=== PATIENT | female | born 1975 | race Caucasian/White ===

== ENCOUNTER 2017-01-29 17:05 | Inpatient (IN) | payer OTHER ==
[~2017-01-29] VITALS: Ht 160 cm; Wt 91.3 kg
--- NOTE | 2017-01-29 17:36 | RADRPT ---
PROCEDURE: OB ultrasound CLINICAL INDICATION: Elevated blood pressure with pelvic pain TECHNIQUE: Multiple transverse and longitudinal OB images of the pelvis were obtained. The images were reviewed on a high-resolution PACS workstation. COMPARISON: None FINDINGS: A single live intrauterine is seen. The presentation is vertex. The placenta is grade 2 a nd fundal in location. No evidence of placenta abruption or previa is seen. The heart rate is 142 beats per minute. The amniotic fluid index is 17.4 cm. movement 2 tone 2 breathing 2 Amniotic fluid 2 IMPRESSION: Biophysical profile of 12/26. RPTAT: HPNM Physician Prabha Date Time Electronically viewed and signed by Physician Prabha on 01/29/2017 17:36 /
[2017-01-29 18:04] LABS: BASOPHILS % 0.3 % (0.0-2.0); EOSINOPHILS # 0.2 10^3/ul (0.0-0.5); EOSINOPHILS % 1.9 % (0.0-7.0); HEMATOCRIT 36.4 % (37.0-47.0); HEMOGLOBIN 12.5 g/dl (12.0-16.0); LYMPHOCYTES # 2.3 10^3/ul (0.8-2.9); MEAN CORPUSCULAR HEMOGLOBIN 31.6 pg (29.0-33.0); MEAN CORPUSCULAR HGB CONC 34.3 g/dl (32.0-37.0); MEAN CORPUSCULAR VOLUME 91.9 fl (82.0-101.0); MEAN PLATELET VOLUME 10.6 fl (7.4-10.4); MONOCYTE # 0.7 10^3/ul (0.3-0.9); MONOCYTES % 8.1 % (0.0-11.0); NEUTROPHILS % 64.4 % (39.0-77.0); PLATELET COUNT 207 10^3/UL (140-415); RED BLOOD COUNT 3.96 10^6/ul (4.20-5.40); RED CELL DISTRIBUTION WIDTH 14.1 % (11.5-14.5)
[2017-01-29 18:12] LABS: ADD UMIC NO; UR ASCORBIC ACID NEGATIVE (NEGATIVE); UR BACTERIA FEW /HPF (NONE SEEN); UR BILIRUBIN (Dip) NEGATIVE (NEGATIVE); UR BLOOD (Dip) NEGATIVE (NEGATIVE); UR CLARITY SLIGHTLY CLOUDY (CLEAR); UR COLOR YELLOW (YELLOW); UR GLUCOSE (Dip) NEGATIVE (NEGATIVE); UR KETONES (Dip) NEGATIVE (NEGATIVE); UR LEUKOCYTE ESTERASE (Dip) NEGATIVE Leu/ul (NEGATIVE); UR NITRITE (Dip) NEGATIVE (NEGATIVE); UR RBC 2 /HPF (0-5); UR SPECIFIC GRAVITY (Dip) 1.015 (1.003-1.030); UR SQUAMOUS EPITHELIAL CELL FEW /HPF (FEW); UR TOTAL PROTEIN (Dip) NEGATIVE (NEGATIVE); UR UROBILINOGEN (Dip) NEGATIVE (NEGATIVE)
[2017-01-29 18:17] VITALS: BP 136/84; PULSE 80; RESP 18
[2017-01-29] MEDS ORDERED: PREN1TAB79 PO (18:17)
[2017-01-29] MEDS ORDERED: CALC600T24 PO (18:17)
[2017-01-29 18:18] VITALS: Ht 160 cm; Wt 91.3 kg
[2017-01-29 18:24] LABS: ALBUMIN 3.2 g/dl (3.3-4.9); CALCIUM 9.5 mg/dl (8.4-10.2); CREATININE 0.52 mg/dl (0.44-1.00); POTASSIUM 3.7 mmol/L (3.5-5.1); TOTAL PROTEIN 6.4 g/dl (6.1-8.1); URIC ACID 5.2 mg/dl (3.1-7.9)
--- NOTE | 2017-01-29 18:49 | TRIAGE ---
OB Triage Datetime Report Generated by CPN: 01/29/2017 18:49 Datetime: 01/29/2017 18:14 Assessment Type: Triage Maternal Assessment Level of Consciousness: Fully Conscious DTR's/Clonus: DTRs 2+; No Clonus Headache: Denies Blurred Vision: No Respiratory Effort: Unlabored; Regular Rhythm; Equal Expansion Breath Sounds, Left: Clear and Equal Breath Sounds, Right: Clear and Equal Nausea/Vomiting: Denies RUQ Epigastric Pain: Denies Lower Extremities Edema: Bilateral Lower Extremities Degree: 1+ Upper Extremities Edema: None Degree: None Facial Edema: None Fall Risk Assessment History of Falling: (0) No Secondary Diagnosis: (0) No Ambulatory Aid: (0) Bedrest/Nurse Assist IV Therapy: (0) No Gait: (0) Normal/Bedrest/Immobile Mental Status: (0) Oriented to Own Ability Fall Score: 0 Fall Risk Score Definition: No Risk: No action required Datetime: 01/29/2017 18:11 Time of Arrival: 01/29/2017 16:55 EGA: 34.2 Arrived By: Ambulatory Arrived From: Office Chief Complaint: PT SENT IN TO EVAL. FOR HBP Movement: Present Contractions: Denies/Absent Rupture of Membranes: Denies Vaginal Bleeding: None Vaginal Discharge: Denies Recent Sexual Intercouse: Denies Abdominal Trauma: Not Applicable Patient Complaints: None Time Provider Notified: 01/29/2017 18:30 Provider Notified: DELSHAD Initial Plan: CBC/CMP/URIC ACID/UA/BPP Datetime: 01/29/2017 17:40 Labor Evaluation Monitor Mode: External Heart Rate Monitor Mode: External US
--- NOTE | 2017-01-29 19:00 | HP ---
Date/Time of Note Date/Time of Note DATE: 01/29/17 TIME: 18:57 OB - History Hx of Present Chief Complaint: Elevated BP Estimated Due Date: Mar 10, 2017 : 5 Para: 3 Spontaneous : 1 Therapeutic : 0 Care: Good Care Ultrasounds: Normal mid trimester US Obstetrical Complications: Gestational Diabetes Medical Complications: None Past Family/Social History * Past Medical, Surgical, Family and Obstetric Histories reviewed from chart. GBS Status: Unknown OB Admission Exam Vital Signs Vital Signs Vital Signs Date Time Temp Pulse Resp B/P Pulse Ox O2 Delivery O2 Flow Rate FiO2 01/29/17 18:17 98.1 80 18 136/84 98 Room Air Physical Exam HEENT: WNL Heart: Rhythm Normal Lungs: Clear, Equal Abdomen: WNL Extremities: Normal Reflexes: Normal Heart Rate: 130's Accelerations: Accelerations Present Decelerations: No Decelerations Varibility: Moderate Last 72 hours Lab Results CBC & BMP 01/29/17 17:50 Liver Function Test 01/29/17 17:50 Alanine Aminotransferase (ALT/SGPT) 26 Albumin 3.2 L Alkaline Phosphatase 87 Aspartate Amino Transf (AST/SGOT) 21 Direct Bilirubin 0.00 Total Protein 6.4 OB Assessment/Plan Reason for admission: other (R/O preeclampsia) Plan: Other Other plan: Admit 24 hour urine collection Monitor BP [facility] labs RYAN GIMENEZ MD Jan 29, 2017 19:00
[2017-01-30 18:24] LABS: COLLECTION PERIOD 24 hrs
[2017-01-30 19:18] LABS: COLLECTION PERIOD 24 hrs; SCRET 0.52 mg/dl (0.44-1.00)
--- NOTE | 2017-01-30 20:14 | QN ---
Documentation Comment No complaint Afebrile VSS Strip Category I 24 hour urine total protein > 600 mg Plan: Perinatology consult. RYAN GIMENEZ MD Jan 30, 2017 20:14
[2017-01-31 06:24] LABS: BASOPHILS % 0.5 % (0.0-2.0); EOSINOPHILS # 0.2 10^3/ul (0.0-0.5); EOSINOPHILS % 2.6 % (0.0-7.0); HEMATOCRIT 39.3 % (37.0-47.0); HEMOGLOBIN 13.1 g/dl (12.0-16.0); LYMPHOCYTES # 2.2 10^3/ul (0.8-2.9); LYMPHOCYTES % 25.3 % (15.0-51.0); MEAN CORPUSCULAR HEMOGLOBIN 30.8 pg (29.0-33.0); MEAN CORPUSCULAR HGB CONC 33.3 g/dl (32.0-37.0); MEAN CORPUSCULAR VOLUME 92.3 fl (82.0-101.0); MEAN PLATELET VOLUME 10.8 fl (7.4-10.4); MONOCYTE # 0.6 10^3/ul (0.3-0.9); MONOCYTES % 6.8 % (0.0-11.0); NEUTROPHILS % 64.3 % (39.0-77.0); PLATELET COUNT 220 10^3/UL (140-415); RED BLOOD COUNT 4.26 10^6/ul (4.20-5.40); RED CELL DISTRIBUTION WIDTH 14.6 % (11.5-14.5); WHITE BLOOD COUNT 8.6 10^3/ul (4.8-10.8)
[2017-01-31 06:58] LABS: ALBUMIN 3.2 g/dl (3.3-4.9); ALBUMIN/GLOBULIN RATIO 0.96; BILIRUBIN,INDIRECT 0.2 mg/dl (0-1.1); BILIRUBIN,TOTAL 0.2 mg/dl (0.2-1.3); CALCIUM 9.4 mg/dl (8.4-10.2); CREATININE 0.54 mg/dl (0.44-1.00); TOTAL PROTEIN 6.5 g/dl (6.1-8.1); URIC ACID 5.6 mg/dl (3.1-7.9)
[2017-01-31] MEDS: BETAMET NA PHOS/AC(6 MG/ML) 5ML INJ IM SCH (10:28)
--- NOTE | 2017-01-31 13:27 | QN ---
Documentation Comment No complaint Afebrile VSS Strip Reactive Will give IM betamethasone per recommendation of Perinatology. RYAN GIMENEZ MD Jan 31, 2017 13:27
[2017-01-31] MEDS: ACCU-CHEK XX SCH ×2 (15:10→20:05)
[2017-01-31] MEDS: INSULIN ASPART [NOVOLOG] 3 ML PEN SC SCH ×2 (15:15→20:05)
[2017-01-31] MEDS: ACETAMINOPHEN 325 MG TAB PO PRN (18:35)
--- NOTE | 2017-02-01 05:11 | CONS ---
DATE OF ADMISSION: 01/29/2017 DATE OF CONSULTATION: 01/31/2017 HISTORY OF PRESENT ILLNESS: The patient is a multigravida at 34 weeks and 4 days with history of gestational diabetes, on no medication. She had elevated blood pressure yesterday, which was sent from clinic to evaluate for preeclampsia. A 24-hour urine for protein is 600 g. She is experiencing mild elevation in blood pressure and no severe range. She has no headache, chest pain, shortness of breath, or right upper quadrant pain. PAST MEDICAL HISTORY: Negative. REVIEW OF SYSTEMS: Negative. PHYSICAL EXAMINATION: VITAL SIGNS: Blood pressure 139/92. Physical exam deferred. heart tones reassuring for gestational age. No contractions. LABORATORY: Her preeclampsia labs, except for the 24-hour urine for protein, are normal. IMPRESSION: 1. Intrauterine at 34 weeks and 4 days with mild preeclampsia, currently stable. 2. Gestational diabetes. RECOMMENDATIONS: In-house management at least for 3 or 4 more days to establish baseline blood pressures. Betamethasone. Insulin sliding scale as her blood glucose will be elevated because of the betamethasone. If the patient continues to be mildly preeclamptic, delivery at 37 weeks is recommended. Otherwise, if for any reason the patient becomes severely preeclamptic, delivery instant is recommended at that time. Dictated By: Yeimy Cavazos MD /jer/melissa /Document#: [id number]
[2017-02-01] MEDS: ACCU-CHEK XX SCH ×4 (09:00→20:06)
[2017-02-01] MEDS: BETAMET NA PHOS/AC(6 MG/ML) 5ML INJ IM SCH (10:24)
[2017-02-01] MEDS: INSULIN ASPART [NOVOLOG] 3 ML PEN SC SCH ×3 (11:42→20:11)
--- NOTE | 2017-02-01 20:10 | QN ---
Documentation Comment No complaint Afebrile VSS Strip Category I Continue care per Perinatology. RYAN GIMENEZ MD Feb 01, 2017 20:10
[2017-02-02 06:58] LABS: BASOPHILS % 0.1 % (0.0-2.0); HEMATOCRIT 37.9 % (37.0-47.0); HEMOGLOBIN 12.7 g/dl (12.0-16.0); LYMPHOCYTES # 1.7 10^3/ul (0.8-2.9); LYMPHOCYTES % 13.9 % (15.0-51.0); MEAN CORPUSCULAR HEMOGLOBIN 31.1 pg (29.0-33.0); MEAN CORPUSCULAR HGB CONC 33.5 g/dl (32.0-37.0); MEAN CORPUSCULAR VOLUME 92.9 fl (82.0-101.0); MEAN PLATELET VOLUME 11.3 fl (7.4-10.4); MONOCYTE # 0.7 10^3/ul (0.3-0.9); MONOCYTES % 5.4 % (0.0-11.0); NEUTROPHIL # 9.9 10^3/ul (1.6-7.5); NEUTROPHILS % 79.4 % (39.0-77.0); PLATELET COUNT 218 10^3/UL (140-415); RED BLOOD COUNT 4.08 10^6/ul (4.20-5.40); RED CELL DISTRIBUTION WIDTH 14.4 % (11.5-14.5); WHITE BLOOD COUNT 12.4 10^3/ul (4.8-10.8)
[2017-02-02 07:24] LABS: ALBUMIN 3.2 g/dl (3.3-4.9); ALBUMIN/GLOBULIN RATIO 1.03; BILIRUBIN,INDIRECT 0.1 mg/dl (0-1.1); BILIRUBIN,TOTAL 0.1 mg/dl (0.2-1.3); CREATININE 0.57 mg/dl (0.44-1.00); POTASSIUM 4.1 mmol/L (3.5-5.1); TOTAL PROTEIN 6.3 g/dl (6.1-8.1); URIC ACID 6.9 mg/dl (3.1-7.9)
[2017-02-02] MEDS: ACCU-CHEK XX SCH ×4 (07:52→20:18)
[2017-02-02] MEDS: INSULIN ASPART [NOVOLOG] 3 ML PEN SC SCH ×3 (11:46→20:17)
[2017-02-02] MEDS ORDERED: AL HYDROX/MG HYDROX/SIMETH 30 ML CUP ONE (18:57)
[2017-02-02] MEDS: AL HYDROX/MG HYDROX/SIMETH 30 ML CUP PO PRN (19:00)
--- NOTE | 2017-02-02 19:29 | QN ---
Documentation Comment No complaint Afebrile VSS Strip Reactive PLt, ALT, AST normal Continue care per Perinatology. RYAN GIMENEZ MD Feb 02, 2017 19:29
[2017-02-03] MEDS: ACCU-CHEK XX SCH ×4 (09:15→20:22)
[2017-02-03] MEDS: INSULIN ASPART [NOVOLOG] 3 ML PEN SC SCH ×3 (11:23→20:05)
--- NOTE | 2017-02-03 17:27 | QN ---
Documentation Comment No complaint Afebrile VSS Strip Reactive Continue per Perinatology. RYAN GIMENEZ MD Feb 03, 2017 17:26
--- NOTE | 2017-02-03 18:05 | RADRPT ---
PROCEDURE: US OB biophysical profile. CLINICAL INDICATION: decreased movements, GDM TECHNIQUE: Multiple sonographic images of the pelvis were obtained. The images were reviewed on a PACS workstation. COMPARISON: 01/29/2017 FINDINGS: There is a single viable intrauterine gestation. Cardiac activity is present with 132 beats per min [place]. There is a vertex presentation. The placenta is maternal right. There is no evidence of placental abruption. There is a normal amount of amniotic fluid with an LIZBETH = 15.5 cm. Biophysical profile: movement 2/2 tone 2/2. breathing 2/2 LIZBETH 2/2 Total 12/26 RPTAT: AA . IMPRESSION: Normal biophysical profile. . .Kavin Yousesf MD, MD Date Time Electronically viewed and signed by .Kavin Youssef MD, MD on 02/03/2017 18:05 .S/
[2017-02-04] MEDS: ACCU-CHEK XX SCH ×4 (08:00→20:41)
[2017-02-04] MEDS: INSULIN ASPART [NOVOLOG] 3 ML PEN SC SCH ×3 (11:00→20:05)
[2017-02-04] MEDS: PRENATAL VITAMIN PO SCH (11:02)
[2017-02-04] MEDS: FERROUS SULFATE (EC) 325 MG TAB PO SCH (11:02)
--- NOTE | 2017-02-04 17:49 | QN ---
Documentation Comment No complaint Afebrile VSS Strip Reactive Repeat PIH labs in AM. RYAN GIMENEZ MD Feb 04, 2017 17:49
[2017-02-05 06:01] LABS: BASOPHILS % 0.4 % (0.0-2.0); EOSINOPHILS # 0.2 10^3/ul (0.0-0.5); HEMATOCRIT 39.7 % (37.0-47.0); HEMOGLOBIN 13.3 g/dl (12.0-16.0); LYMPHOCYTES # 2.2 10^3/ul (0.8-2.9); LYMPHOCYTES % 22.7 % (15.0-51.0); MEAN CORPUSCULAR HEMOGLOBIN 30.9 pg (29.0-33.0); MEAN CORPUSCULAR HGB CONC 33.5 g/dl (32.0-37.0); MEAN CORPUSCULAR VOLUME 92.1 fl (82.0-101.0); MEAN PLATELET VOLUME 11.1 fl (7.4-10.4); MONOCYTE # 0.7 10^3/ul (0.3-0.9); MONOCYTES % 7.1 % (0.0-11.0); NEUTROPHIL # 6.5 10^3/ul (1.6-7.5); NEUTROPHILS % 66.9 % (39.0-77.0); PLATELET COUNT 201 10^3/UL (140-415); RED BLOOD COUNT 4.31 10^6/ul (4.20-5.40); RED CELL DISTRIBUTION WIDTH 14.2 % (11.5-14.5); WHITE BLOOD COUNT 9.8 10^3/ul (4.8-10.8)
[2017-02-05 06:47] LABS: ALBUMIN 3.2 g/dl (3.3-4.9); BILIRUBIN,INDIRECT 0.2 mg/dl (0-1.1); BILIRUBIN,TOTAL 0.2 mg/dl (0.2-1.3); CALCIUM 10.2 mg/dl (8.4-10.2); CREATININE 0.55 mg/dl (0.44-1.00); POTASSIUM 4.1 mmol/L (3.5-5.1); TOTAL PROTEIN 6.4 g/dl (6.1-8.1); URIC ACID 6.1 mg/dl (3.1-7.9)
[2017-02-05] MEDS: ACCU-CHEK XX SCH ×4 (08:06→20:18)
[2017-02-05] MEDS: FERROUS SULFATE (EC) 325 MG TAB PO SCH (09:18)
[2017-02-05] MEDS: PRENATAL VITAMIN PO SCH (09:18)
[2017-02-05] MEDS: ACETAMINOPHEN 325 MG TAB PO PRN (11:08)
[2017-02-05] MEDS: INSULIN ASPART [NOVOLOG] 3 ML PEN SC SCH ×3 (11:30→20:05)
[2017-02-05] MEDS: AL HYDROX/MG HYDROX/SIMETH 30 ML CUP PO PRN (20:18)
--- NOTE | 2017-02-05 20:50 | QN ---
Documentation Comment No complaint Afebrile VSS Strip Reactive Patient will be discharged per recommendation of Perinatology Follow up on 02/07/2017. RYAN GIMENEZ MD Feb 05, 2017 20:50
--- NOTE | 2017-02-05 20:51 | DS ---
Date/Time of Note Date/Time of Note DATE: 02/05/17 TIME: 20:50 Obstetrical Discharge Record Final Diagnosis Final Diagnosis: not delivered Complications Gestational Diabetes, Preg induced Hypertension Condition on Discharge Physical Assessment Voiding: Yes Bowel Movement: Yes Breast: Soft, non-tender, Filling Fundus: Firm Calf Tenderness: No Patient Condition: Stable RYAN GIMENEZ MD Feb 05, 2017 20:51
== END 2017-02-05 21:12 | disposition home or self-care (01) | DRG 781 ==
LOC: L-D 17:05 → OBT 17:05 → OBG 18:45 → L-D 18:45 → OBT 18:45
PROVIDERS: ADMIT Obstetrics & Gynecology; ATTEND Obstetrics & Gynecology
DX: O14.03 Mild to moderate pre-eclampsia, third trimester (principal); O24.419 Gestational diabetes mellitus in pregnancy, unspecified control; Z3A.34 34 weeks gestation of pregnancy
CPT/HCPCS: 36415; 76818; 80053; 81001; 81003; 82575; 82962; 84156; 84560; 85025; G0463; J0702; J1815

== ENCOUNTER 2017-02-08 14:42 | Outpatient (CLI) | payer OTHER ==
[~2017-02-08] VITALS: Ht 162.6 cm; Wt 88.7 kg
[~2017-02-08 14:42] MED LIST: CALC600T24 PO; PREN1TAB79 PO
[2017-02-08 15:06] VITALS: Ht 162.6 cm; Wt 88.7 kg
[2017-02-08 15:07] VITALS: BP 147/88; PULSE 86; RESP 18
--- NOTE | 2017-02-08 15:22 | RADRPT ---
PROCEDURE: OB ultrasound for biophysical profile CLINICAL INDICATION: Patency induced hypertension. TECHNIQUE: Multiple sonographic images of the pelvis were obtained. Transabdominal view of the gr avid uterus are available for review. The images were reviewed on a PACS workstation. COMPARISON: Pelvic ultrasound 02/03/2017 FINDINGS: breathing movement = 2/2 tone = 2/2 motion = 2/2 LIZBETH = 2/2 LIZBETH = 13.6 cm Single live intrauterine with cardiac activity. heart rate equals 131 beats p er minute. Presentation is cephalic. The placenta is fundal. IMPRESSION: 1. Single viable intrauterine gestation. 2. Biophysical profile = 8/8. 3. LIZBETH = 13.6 cm. RPTAT: KK .Oscar Simon MD, MD Date Time Electronically viewed and signed by .Oscar Simon MD, MD on 02/08/2017 15:22 .B/
--- NOTE | 2017-02-08 16:54 | QN ---
Documentation Comment iup 35 weeks gdm vss exam wnl labs wnl a/p iup 35 weeks gdm stable dc [place] MANJU FLOOD MD Feb 08, 2017 16:54
== END 2017-02-08 17:00 | disposition home or self-care (01) ==
LOC: L-D 14:42 → OBT 14:42
PROVIDERS: ATTEND Obstetrics & Gynecology
DX: O24.419 Gestational diabetes mellitus in pregnancy, unspecified control (principal); Z3A.35 35 weeks gestation of pregnancy
CPT/HCPCS: 76818; G0463

== ENCOUNTER 2017-02-12 09:12 | Outpatient (CLI) | payer OTHER ==
[~2017-02-12] VITALS: Ht 162.6 cm; Wt 89.0 kg
[2017-02-12 10:04] LABS: BASOPHILS % 0.3 % (0.0-2.0); EOSINOPHILS # 0.1 10^3/ul (0.0-0.5); EOSINOPHILS % 1.4 % (0.0-7.0); HEMATOCRIT 37.2 % (37.0-47.0); LYMPHOCYTES # 1.8 10^3/ul (0.8-2.9); LYMPHOCYTES % 23.7 % (15.0-51.0); MEAN CORPUSCULAR HGB CONC 34.9 g/dl (32.0-37.0); MEAN CORPUSCULAR VOLUME 91.6 fl (82.0-101.0); MEAN PLATELET VOLUME 10.6 fl (7.4-10.4); MONOCYTE # 0.5 10^3/ul (0.3-0.9); MONOCYTES % 6.6 % (0.0-11.0); NEUTROPHIL # 5.2 10^3/ul (1.6-7.5); NEUTROPHILS % 67.6 % (39.0-77.0); PLATELET COUNT 189 10^3/UL (140-415); RED BLOOD COUNT 4.06 10^6/ul (4.20-5.40); RED CELL DISTRIBUTION WIDTH 13.9 % (11.5-14.5); WHITE BLOOD COUNT 7.8 10^3/ul (4.8-10.8)
[2017-02-12 10:21] VITALS: Ht 162.6 cm; Wt 89.0 kg
[2017-02-12 10:22] VITALS: BP 120/98; PULSE 98; RESP 20
--- NOTE | 2017-02-12 10:22 | RADRPT ---
PROCEDURE: US OB biophysical profile. CLINICAL INDICATION: decreased movements, contractions TECHNIQUE: Multiple sonographic images of the pelvis were obtained. The images were reviewed on a PACS workstation. COMPARISON: 02/08/2017 FINDINGS: There is a single viable intrauterine gestation. Cardiac activity is present with 146 beats per min [place]. There is a vertex presentation. The placenta is anterior. There is no evidence of placental abruption. There is a normal amount of amniotic fluid with an LIZBETH = 12.0 cm. Biophysical profile: movement 2/2 tone 2/2. breathing 2/2 LIZBETH 2/2 Total 12/26 RPTAT: AA . IMPRESSION: Normal biophysical profile. . .Kavin Youssef MD, MD Date Time Electronically viewed and signed by .Kavin Youssef MD, MD on 02/12/2017 10:22 .S/
[2017-02-12 10:26] LABS: INR 0.91; PARTIAL THROMBOPLASTIN TIME 23.8 Sec (25.0-35.0); PROTIME 12.2 Sec (12.2-14.2)
[2017-02-12 10:32] LABS: ADD UMIC YES; UR ASCORBIC ACID 40 mg/dL (NEGATIVE); UR BACTERIA MANY /HPF (NONE SEEN); UR BILIRUBIN (Dip) NEGATIVE (NEGATIVE); UR BLOOD (Dip) NEGATIVE (NEGATIVE); UR CLARITY CLOUDY (CLEAR); UR COLOR YELLOW (YELLOW); UR GLUCOSE (Dip) NEGATIVE (NEGATIVE); UR KETONES (Dip) NEGATIVE (NEGATIVE); UR LEUKOCYTE ESTERASE (Dip) 2+ Leu/ul (NEGATIVE); UR MUCUS FEW /HPF (NONE SEEN); UR NITRITE (Dip) NEGATIVE (NEGATIVE); UR RBC 2 /HPF (0-5); UR SPECIFIC GRAVITY (Dip) 1.017 (1.003-1.030); UR SQUAMOUS EPITHELIAL CELL MANY /HPF (FEW); UR TOTAL PROTEIN (Dip) 1+ mg/dl (NEGATIVE); UR UROBILINOGEN (Dip) NEGATIVE (NEGATIVE)
[2017-02-12 10:37] LABS: ALBUMIN 3.1 g/dl (3.3-4.9); ALBUMIN/GLOBULIN RATIO 0.88; BILIRUBIN,INDIRECT 0.1 mg/dl (0-1.1); BILIRUBIN,TOTAL 0.1 mg/dl (0.2-1.3); CALCIUM 10.4 mg/dl (8.4-10.2); CREATININE 0.57 mg/dl (0.44-1.00); POTASSIUM 4.2 mmol/L (3.5-5.1); TOTAL PROTEIN 6.6 g/dl (6.1-8.1)
--- NOTE | 2017-02-12 12:00 | TRIAGE ---
OB Triage Datetime Report Generated by CPN: 02/12/2017 12:00 Datetime: 02/12/2017 11:38 Labor Evaluation Frequency: IRREG Monitor Mode: External Duration (sec)2399: 50-90 Quality: Mild Pattern: Normal: <= 5 Contractions in 10 Minutes Resting Tone [place]: Relaxed Contraction Comments: PT DENIES UC'S Heart Rate FHR Baseline Rate: 135 Monitor Mode: External US Variability: Moderate 6-25 bpm Accelerations: 15X15 Decelerations: None Category: Category I Pain Assessment Pain Scale: 1 Pain Presence: Intermittent Pain Type: Contraction Pain Location: Abdomen; Back Pain Goal: 10 Datetime: 02/12/2017 09:46 Assessment Type: Ongoing Assessment Maternal Assessment Level of Consciousness: Fully Conscious DTR's/Clonus: DTRs 2+; No Clonus Headache: Denies Blurred Vision: No Respiratory Effort: Unlabored; Regular Rhythm; Equal Expansion Breath Sounds, Left: Clear and Equal Breath Sounds, Right: Clear and Equal Nausea/Vomiting: Denies RUQ Epigastric Pain: Denies Facial Edema: None Fall Risk Assessment History of Falling: (0) No Secondary Diagnosis: (0) No Ambulatory Aid: (0) Bedrest/Nurse Assist IV Therapy: (0) No Gait: (0) Normal/Bedrest/Immobile Mental Status: (0) Oriented to Own Ability Fall Score: 0 Fall Risk Score Definition: No Risk: No action required Datetime: 02/12/2017 09:45 Stage of : OB Triage Assessment Type: Triage Maternal Assessment Level of Consciousness: Fully Conscious DTR's/Clonus: DTRs 2+; No Clonus Headache: Denies Blurred Vision: No Respiratory Effort: Unlabored; Regular Rhythm; Equal Expansion Breath Sounds, Left: Clear and Equal Breath Sounds, Right: Clear and Equal Nausea/Vomiting: Denies RUQ Epigastric Pain: Denies Lower Extremities Edema: None Degree: None Upper Extremities Edema: None Degree: None Facial Edema: None Temperature Route: Axillary Fall Risk Assessment History of Falling: (0) No Secondary Diagnosis: (0) No Ambulatory Aid: (0) Bedrest/Nurse Assist IV Therapy: (0) No Gait: (0) Normal/Bedrest/Immobile Mental Status: (0) Oriented to Own Ability Fall Score: 0 Fall Risk Score Definition: No Risk: No action required Pain Assessment Pain Scale: 0 Pain Presence: None/Denies Pain Type: N/A Datetime: 02/12/2017 09:14 Time of Arrival: 02/12/2017 09:07 EGA: 36.2 Arrived By: Ambulatory Arrived From: Home Chief Complaint: NST/ BPP FOR HIGH BP AND A1DM Movement: Present Contractions: Denies/Absent Contractions: IRREG Rupture of Membranes: Denies Vaginal Bleeding: None Vaginal Discharge: Denies Recent Sexual Intercouse: Denies Abdominal Trauma: Not Applicable Patient Complaints: Contractions Time Provider Notified: 02/12/2017 09:30 Provider Notified: PERNELL Initial Plan: BPP, NST (Annotations: Data stored by CPN on behalf of user) Datetime: 02/08/2017 15:01 Fall Score: 0 Fall Risk Score Definition: No Risk: No action required Datetime: 02/08/2017 15:00 EGA: 35.5 Datetime: 02/05/2017 19:20 Fall Score: 0 Fall Risk Score Definition: No Risk: No action required Datetime: 02/05/2017 08:08 Fall Score: 0 Fall Risk Score Definition: No Risk: No action required Datetime: 02/04/2017 07:42 Fall Score: 0 Fall Risk Score Definition: No Risk: No action required Datetime: 02/03/2017 19:41 Fall Score: 0 Fall Risk Score Definition: No Risk: No action required Datetime: 02/03/2017 08:50 Fall Score: 0 Fall Risk Score Definition: No Risk: No action required Datetime: 02/02/2017 19:25 Fall Score: 0 Fall Risk Score Definition: No Risk: No action required Datetime: 02/02/2017 07:47 Fall Score: 0 Fall Risk Score Definition: No Risk: No action required Datetime: 02/01/2017 07:46 Fall Score: 0 Fall Risk Score Definition: No Risk: No action required Datetime: 01/31/2017 20:25 Fall Score: 0 Fall Risk Score Definition: No Risk: No action required Datetime: 01/31/2017 19:15 Fall Score: 0 Fall Risk Score Definition: No Risk: No action required Datetime: 01/31/2017 07:58 Fall Score: 0 Fall Risk Score Definition: No Risk: No action required Datetime: 01/30/2017 19:40 Fall Score: 0 Fall Risk Score Definition: No Risk: No action required Datetime: 01/30/2017 07:59 Fall Score: 0 Fall Risk Score Definition: No Risk: No action required Datetime: 01/29/2017 22:53 Fall Score: 0 Fall Risk Score Definition: No Risk: No action required Datetime: 01/29/2017 18:14 Fall Score: 0 Fall Risk Score Definition: No Risk: No action required Datetime: 01/29/2017 18:11 EGA: 34.2
--- NOTE | 2017-02-12 18:09 | QN ---
Documentation Comment iup 36 weeks GDM vss exan wnl a/p iup 36 weeks GDM stable HTN stable dc home MANJU FLOOD MD Feb 12, 2017 18:09
== END 2017-02-12 11:55 | disposition home or self-care (01) ==
LOC: OBT 09:12 → L-D 09:12 → OBT 11:55
PROVIDERS: ATTEND Obstetrics & Gynecology
DX: O24.419 Gestational diabetes mellitus in pregnancy, unspecified control (principal); Z3A.36 36 weeks gestation of pregnancy
CPT/HCPCS: 36415; 76818; 80053; 81001; 84560; 85025; 85384; 85610; 85730; Z7500; G0463

== ENCOUNTER 2017-02-15 07:46 | Outpatient (CLI) | payer OTHER ==
[~2017-02-15] VITALS: Ht 162.6 cm; Wt 90.0 kg
[2017-02-15 08:06] VITALS: BP 144/83; PULSE 93; Ht 162.6 cm; Wt 90.0 kg
--- NOTE | 2017-02-15 08:50 | RADRPT ---
PROCEDURE: US OB biophysical profile. CLINICAL INDICATION: evaluation TECHNIQUE: Multiple sonographic images of the pelvis were obtained. The images were reviewed on a PACS workstation. COMPARISON: Obstetrical ultrasound from 02/12/2017 FINDINGS: There is a single viable intrauterine gestation. Cardiac activity is present with 159 beats per min [place]. There is a vertex presentation. The placenta is anterior. There is no evidence of placental abruption. There is a normal amount of amniotic fluid with an LIZBETH = 12.5 cm. Biophysical profile: movement 2/2 tone 2/2. breathing 2/2 LIZBETH 2/2 Total 12/26 RPTAT: AA . IMPRESSION: Normal biophysical profile. Physician Raphael Date Time Electronically viewed and signed by Physician Raphael on 02/15/2017 08:50 /
[2017-02-15 10:22] LABS: BASOPHILS % 0.4 % (0.0-2.0); EOSINOPHILS # 0.2 10^3/ul (0.0-0.5); HEMATOCRIT 37.2 % (37.0-47.0); HEMOGLOBIN 12.6 g/dl (12.0-16.0); LYMPHOCYTES # 1.8 10^3/ul (0.8-2.9); LYMPHOCYTES % 24.5 % (15.0-51.0); MEAN CORPUSCULAR HEMOGLOBIN 31.1 pg (29.0-33.0); MEAN CORPUSCULAR HGB CONC 33.9 g/dl (32.0-37.0); MEAN CORPUSCULAR VOLUME 91.9 fl (82.0-101.0); MEAN PLATELET VOLUME 11.1 fl (7.4-10.4); MONOCYTE # 0.6 10^3/ul (0.3-0.9); MONOCYTES % 7.4 % (0.0-11.0); NEUTROPHIL # 4.9 10^3/ul (1.6-7.5); NEUTROPHILS % 65.3 % (39.0-77.0); PLATELET COUNT 178 10^3/UL (140-415); RED BLOOD COUNT 4.05 10^6/ul (4.20-5.40); RED CELL DISTRIBUTION WIDTH 14.4 % (11.5-14.5); WHITE BLOOD COUNT 7.5 10^3/ul (4.8-10.8)
[2017-02-15 10:36] LABS: ALBUMIN 3.2 g/dl (3.3-4.9); ALBUMIN/GLOBULIN RATIO 1.03; BILIRUBIN,INDIRECT 0.1 mg/dl (0-1.1); BILIRUBIN,TOTAL 0.1 mg/dl (0.2-1.3); CALCIUM 9.3 mg/dl (8.4-10.2); CREATININE 0.56 mg/dl (0.44-1.00); TOTAL PROTEIN 6.3 g/dl (6.1-8.1); URIC ACID 6.8 mg/dl (3.1-7.9)
--- NOTE | 2017-02-15 12:08 | CONS ---
Date/Time of Note Date/Time of Note DATE: 02/15/17 TIME: 12:02 Consultation Date/Type/Reason Admit Date/Time February 15, 2017 OB triage consult This patient is a 41 years old 5 para 3 1 with estimated date of confinement of March 10, 2017 which make her 36 weeks and 5 days. She came to OB triage due to elevated blood pressure and gestational diabetes mellitus to be evaluated and monitored. She is on a scheduled for section on Sunday 4 days later On examination she is somewhat overweight lady near-term. Her vital signs shows the blood pressure of 144/83 pulse rate 93 respiration 18 and temperature 97.9. heart tones are normal with good variability and accelerations no decelerations. No contractions abdomen is soft. No CVA tenderness. Laboratory Tests Test 02/15/17 07:52 02/15/17 09:20 Bedside Glucose 160mg/dL White Blood Count 7.510^3/ul Red Blood Count 4.0510^6/ul Hemoglobin 12.6g/dl Hematocrit 37.2% Mean Corpuscular Volume 91.9fl Mean Corpuscular Hemoglobin 31.1pg Mean Corpuscular Hemoglobin Concent 33.9g/dl Red Cell Distribution Width 14.4% Platelet Count 23723^3/UL Mean Platelet Volume 11.1fl Neutrophils % 65.3% Lymphocytes % 24.5% Monocytes % 7.4% Eosinophils % 2.0% Basophils % 0.4% Nucleated Red Blood Cells % 0.0/100WBC Neutrophils # 4.910^3/ul Lymphocytes # 1.810^3/ul Monocytes # 0.610^3/ul Eosinophils # 0.210^3/ul Basophils # 0.010^3/ul Nucleated Red Blood Cells # 0.010^3/ul Sodium Level 134mmol/L Potassium Level 4.0mmol/L Chloride Level 106mmol/L Carbon Dioxide Level 21mmol/L Anion Gap 11 Blood Urea Nitrogen 9mg/dl Creatinine 0.56mg/dl Glucose Level 132mg/dl Uric Acid 6.8mg/dl Calcium Level 9.3mg/dl Total Bilirubin 0.1mg/dl Direct Bilirubin 0.00mg/dl Indirect Bilirubin 0.1mg/dl Aspartate Amino Transf (AST/SGOT) 20IU/L Alanine Aminotransferase (ALT/SGPT) 29IU/L Alkaline Phosphatase 102IU/L Total Protein 6.3g/dl Albumin 3.2g/dl Globulin 3.10g/dl Albumin/Globulin Ratio 1.03 Constitutional: No chills, No diaphoresis, No disoriented, No febrile, No improved, No no complaints, No other, No poor po, No requiring IVF, No requiring O2 Eyes: No discharge, No no complaints, No other, No pain, No redness, No visual change ENT: No bleeding, No congestion, No discharge, No dysphagia, No no complaints, No other, No pain, No sore throat Respiratory: No cough, No no complaints, No other, No pain, No pleuritic pain, No shortness of breath, No sputum, No wheezing Cardiovascular: No chest pain, No edema, No lightheadedness, No no complaints, No orthopenea, No other, No palpitations, No paroxysmal nocturnal dyspnea Gastrointestinal: No blood, No constipation, No decreased appetite, No diarrhea , No flatus, No nausea, No no complaints, No other, No pain, No passing stool, No vomiting Genitourinary: other (Pelvic examination was not performed due to the fact that she did not have any contractions), No bleeding, No discharge, No dysuria, No flank pain, No hematuria, No no complaints Musculoskeletal: No back pain, No bone/joint pain, No neck pain, No no complaints, No other, No restricted range of motion, No swelling Skin: No bruising, No erythema, No laceration, No no complaints, No other, No pruritis, No rash, No skin lesions Neurologic: No confusion, No dizziness, No focal-weakness, No headache, No no complaints, No other, No seizure, No syncope Endocrine: other (Knee jerk reflexes are normal) Lymphatic: No adenopathy, No lymphadema, No no complaints, No other, No tender nodes Psychological: No anxiety, No confusion, No depression, No nl mood/affect, No no complaints, No other, No suicidal Additional Comments .On ultrasound study report was a single viable intrauterine gestation with cardiac activity of 159 bpm in vertex presentation placenta was anterior there was no evidence of a placenta abruption her biophysical profile was reported 12/26 LIZBETH was 12.5 cm Disposition; with the favorable abnormal finding patient was discharged home and she will undergo a section in 4 days. End of dictation . . Social History Smoking Status: Never smoker Exam/Review of Systems Vital Signs Vitals Vital Signs Date Time Temp Pulse Resp B/P Pulse Ox O2 Delivery O2 Flow Rate FiO2 02/15/17 08:06 97.9 93 144/83 Results Result Diagram: 02/15/17 0920 02/15/17 0920 Results 24 hrs Laboratory Tests Test 02/15/17 07:52 02/15/17 09:20 Bedside Glucose 160 White Blood Count 7.5 Red Blood Count 4.05 L Hemoglobin 12.6 Hematocrit 37.2 Mean Corpuscular Volume 91.9 Mean Corpuscular Hemoglobin 31.1 Mean Corpuscular Hemoglobin Concent 33.9 Red Cell Distribution Width 14.4 Platelet Count 178 Mean Platelet Volume 11.1 H Neutrophils % 65.3 Lymphocytes % 24.5 Monocytes % 7.4 Eosinophils % 2.0 Basophils % 0.4 Nucleated Red Blood Cells % 0.0 Neutrophils # 4.9 Lymphocytes # 1.8 Monocytes # 0.6 Eosinophils # 0.2 Basophils # 0.0 Nucleated Red Blood Cells # 0.0 Sodium Level 134 L Potassium Level 4.0 Chloride Level 106 Carbon Dioxide Level 21 Anion Gap 11 Blood Urea Nitrogen 9 Creatinine 0.56 Glucose Level 132 Uric Acid 6.8 Calcium Level 9.3 Total Bilirubin 0.1 L Direct Bilirubin 0.00 Indirect Bilirubin 0.1 Aspartate Amino Transf (AST/SGOT) 20 Alanine Aminotransferase (ALT/SGPT) 29 Alkaline Phosphatase 102 Total Protein 6.3 Albumin 3.2 L Globulin 3.10 Albumin/Globulin Ratio 1.03 DEVYN HOFFMANN MD Feb 15, 2017 12:08
--- NOTE | 2017-02-15 12:17 | TRIAGE ---
OB Triage Datetime Report Generated by CPN: 02/15/2017 12:16 Datetime: 02/15/2017 11:55 Stage of : OB Triage Datetime: 02/15/2017 11:20 Stage of : OB Triage Datetime: 02/15/2017 10:54 Labor Evaluation Frequency: 0 Monitor Mode: External Resting Tone Osborn: Relaxed Heart Rate FHR Baseline Rate: 135 Monitor Mode: External US Variability: Moderate 6-25 bpm Decelerations: None Category: Category I Pain Assessment Pain Scale: 0 Pain Presence: None/Denies Pain Type: N/A Pain Goal: 3 Pain Relief Measures: Comfort Measures Datetime: 02/15/2017 10:00 Labor Evaluation Frequency: 0 Monitor Mode: External Pattern: Normal: <= 5 Contractions in 10 Minutes Resting Tone Osborn: Relaxed Heart Rate FHR Baseline Rate: 135 Monitor Mode: External US Variability: Moderate 6-25 bpm Accelerations: 10X10 Decelerations: None Category: Category I Pain Assessment Pain Scale: 0 Pain Presence: None/Denies Pain Type: N/A Pain Goal: 3 Pain Relief Measures: Comfort Measures Datetime: 02/15/2017 09:15 Stage of : OB Triage Datetime: 02/15/2017 08:56 Labor Evaluation Frequency: 0 Monitor Mode: External Pattern: Normal: <= 5 Contractions in 10 Minutes Resting Tone Osborn: Relaxed Heart Rate FHR Baseline Rate: 145 Monitor Mode: External US Variability: Moderate 6-25 bpm Accelerations: 10X10 Decelerations: None Category: Category I Pain Assessment Pain Scale: 0 Pain Presence: None/Denies Pain Type: N/A Pain Goal: 3 Pain Relief Measures: Comfort Measures Datetime: 02/15/2017 07:54 Stage of : OB Triage Assessment Type: Triage Maternal Assessment Level of Consciousness: Fully Conscious DTR's/Clonus: DTRs 2+; No Clonus Headache: Denies Blurred Vision: No Respiratory Effort: Unlabored; Regular Rhythm; Equal Expansion Breath Sounds, Left: Clear and Equal Breath Sounds, Right: Clear and Equal Nausea/Vomiting: Denies RUQ Epigastric Pain: Denies Facial Edema: None Temperature Route: Axillary Fall Risk Assessment History of Falling: (0) No Secondary Diagnosis: (0) No Ambulatory Aid: (0) Bedrest/Nurse Assist IV Therapy: (0) No Gait: (0) Normal/Bedrest/Immobile Mental Status: (0) Oriented to Own Ability Fall Score: 0 Fall Risk Score Definition: No Risk: No action required Labor Evaluation Frequency: 0 Monitor Mode: External Pattern: Normal: <= 5 Contractions in 10 Minutes Resting Tone Osborn: Relaxed Heart Rate FHR Baseline Rate: 145 Monitor Mode: External US Variability: Moderate 6-25 bpm Decelerations: None Category: Category I Pain Assessment Pain Scale: 0 Pain Presence: None/Denies Pain Type: N/A Pain Goal: 3 Pain Relief Measures: Comfort Measures Datetime: 02/15/2017 07:53 Time of Arrival: 02/15/2017 07:43 EGA: 36.5 Arrived By: Ambulatory Arrived From: Home Chief Complaint: F/U NST/BPP PIH AND GDM, DENIES LEAKING, BLEEDING OR UC'S Movement: Present Contractions: Denies/Absent Rupture of Membranes: Denies Vaginal Bleeding: None Vaginal Discharge: Denies Recent Sexual Intercouse: Denies Abdominal Trauma: Not Applicable Patient Complaints: None Time Provider Notified: 02/15/2017 09:15 Provider Notified: delshad Initial Plan: MONITOR, NST/BPP, cmp, cbc, uric acid Datetime: 02/12/2017 09:46 Fall Score: 0 Fall Risk Score Definition: No Risk: No action required Datetime: 02/12/2017 09:45 Fall Score: 0 Fall Risk Score Definition: No Risk: No action required Datetime: 02/12/2017 09:14 EGA: 36.2 Datetime: 02/08/2017 15:01 Fall Score: 0 Fall Risk Score Definition: No Risk: No action required Datetime: 02/08/2017 15:00 EGA: 35.5 Datetime: 02/05/2017 19:20 Fall Score: 0 Fall Risk Score Definition: No Risk: No action required Datetime: 02/05/2017 08:08 Fall Score: 0 Fall Risk Score Definition: No Risk: No action required Datetime: 02/04/2017 07:42 Fall Score: 0 Fall Risk Score Definition: No Risk: No action required Datetime: 02/03/2017 19:41 Fall Score: 0 Fall Risk Score Definition: No Risk: No action required Datetime: 02/03/2017 08:50 Fall Score: 0 Fall Risk Score Definition: No Risk: No action required Datetime: 02/02/2017 19:25 Fall Score: 0 Fall Risk Score Definition: No Risk: No action required Datetime: 02/02/2017 07:47 Fall Score: 0 Fall Risk Score Definition: No Risk: No action required Datetime: 02/01/2017 07:46 Fall Score: 0 Fall Risk Score Definition: No Risk: No action required Datetime: 01/31/2017 20:25 Fall Score: 0 Fall Risk Score Definition: No Risk: No action required Datetime: 01/31/2017 19:15 Fall Score: 0 Fall Risk Score Definition: No Risk: No action required Datetime: 01/31/2017 07:58 Fall Score: 0 Fall Risk Score Definition: No Risk: No action required Datetime: 01/30/2017 19:40 Fall Score: 0 Fall Risk Score Definition: No Risk: No action required Datetime: 01/30/2017 07:59 Fall Score: 0 Fall Risk Score Definition: No Risk: No action required Datetime: 01/29/2017 22:53 Fall Score: 0 Fall Risk Score Definition: No Risk: No action required Datetime: 01/29/2017 18:14 Fall Score: 0 Fall Risk Score Definition: No Risk: No action required Datetime: 01/29/2017 18:11 EGA: 34.2
== END 2017-02-15 12:05 | disposition home or self-care (01) ==
LOC: L-D 07:46 → OBT 07:46
PROVIDERS: ATTEND Obstetrics & Gynecology
DX: O24.419 Gestational diabetes mellitus in pregnancy, unspecified control (principal); Z3A.36 36 weeks gestation of pregnancy
CPT/HCPCS: 76818; 80053; 82962; 84560; 85025; Z7500; G0463

== ENCOUNTER 2017-02-18 08:16 | Inpatient (IN) | payer OTHER ==
[~2017-02-18] VITALS: Ht 162.6 cm; Wt 91.0 kg
[~2017-02-18 08:16] MED LIST changes: +OXYTOCIN 30 UNITS/LR 500 ML BAG IV ONE
[2017-02-18] MEDS ORDERED: MISOPROSTOL 200 MCG TAB PR PRN ×2 (08:30→19:30)
[2017-02-18] MEDS ORDERED: OXYTOCIN 30 UNITS/LR 500 ML IV PRN ×2 (08:30→19:30)
[2017-02-18] MEDS ORDERED: OXYTOCIN 30 UNITS/LR 500 ML IV SCH (08:30)
[2017-02-18] MEDS ORDERED: CARBOPROST 250 MCG INJ IM PRN ×2 (08:30→19:30)
[2017-02-18] MEDS ORDERED: CEFAZOLIN 2 GM/50 ML (PMX) 50 ML IV SCH (08:30)
[2017-02-18] MEDS ORDERED: METHYLERGONOVINE 0.2 MG INJ IM PRN (08:30)
[2017-02-18 08:34] VITALS: Ht 162.6 cm; Wt 91.0 kg
[2017-02-18 08:43] VITALS: BP 131/87; PULSE 90; RESP 20
[2017-02-18] MEDS: LACTATED RINGER'S 1,000 ML IV SCH ×2 (09:09→16:28)
[2017-02-18 09:42] LABS: BASOPHILS % 0.4 % (0.0-2.0); EOSINOPHILS # 0.2 10^3/ul (0.0-0.5); HEMATOCRIT 38.5 % (37.0-47.0); LYMPHOCYTES % 24.3 % (15.0-51.0); MEAN CORPUSCULAR HGB CONC 33.8 g/dl (32.0-37.0); MEAN CORPUSCULAR VOLUME 91.9 fl (82.0-101.0); MEAN PLATELET VOLUME 10.5 fl (7.4-10.4); MONOCYTE # 0.6 10^3/ul (0.3-0.9); MONOCYTES % 6.7 % (0.0-11.0); NEUTROPHIL # 5.4 10^3/ul (1.6-7.5); NEUTROPHILS % 66.2 % (39.0-77.0); PLATELET COUNT 177 10^3/UL (140-415); RED BLOOD COUNT 4.19 10^6/ul (4.20-5.40); RED CELL DISTRIBUTION WIDTH 14.4 % (11.5-14.5); WHITE BLOOD COUNT 8.2 10^3/ul (4.8-10.8)
[2017-02-18] MEDS ORDERED: DEXTROSE 5%-LR 1,000 ML IV PRN (10:00)
[2017-02-18 10:02] LABS: INR 0.93; PROTIME 12.5 Sec (12.2-14.2)
[2017-02-18 10:03] LABS: PARTIAL THROMBOPLASTIN TIME 24.9 Sec (25.0-35.0)
[2017-02-18 10:14] LABS: ALBUMIN 3.1 g/dl (3.3-4.9); ALBUMIN/GLOBULIN RATIO 0.86; BILIRUBIN,INDIRECT 0.1 mg/dl (0-1.1); BILIRUBIN,TOTAL 0.1 mg/dl (0.2-1.3); CALCIUM 9.6 mg/dl (8.4-10.2); CREATININE 0.56 mg/dl (0.44-1.00); POTASSIUM 4.2 mmol/L (3.5-5.1); TOTAL PROTEIN 6.7 g/dl (6.1-8.1); URIC ACID 6.6 mg/dl (3.1-7.9)
[2017-02-18] MEDS ORDERED: ACCU-CHEK XX SCH (11:00)
[2017-02-18 11:32] LABS: ADD UMIC YES; UR ASCORBIC ACID NEGATIVE (NEGATIVE); UR BACTERIA MANY /HPF (NONE SEEN); UR BILIRUBIN (Dip) NEGATIVE (NEGATIVE); UR BLOOD (Dip) NEGATIVE (NEGATIVE); UR CLARITY SLIGHTLY CLOUDY (CLEAR); UR COLOR YELLOW (YELLOW); UR GLUCOSE (Dip) NEGATIVE (NEGATIVE); UR KETONES (Dip) NEGATIVE (NEGATIVE); UR LEUKOCYTE ESTERASE (Dip) TRACE Leu/ul (NEGATIVE); UR MUCUS FEW /HPF (NONE SEEN); UR NITRITE (Dip) NEGATIVE (NEGATIVE); UR RBC 2 /HPF (0-5); UR SPECIFIC GRAVITY (Dip) 1.017 (1.003-1.030); UR SQUAMOUS EPITHELIAL CELL MANY /HPF (FEW); UR TOTAL PROTEIN (Dip) 2+ mg/dl (NEGATIVE); UR UROBILINOGEN (Dip) NEGATIVE (NEGATIVE)
--- NOTE | 2017-02-18 12:54 | HP ---
Date/Time of Note Date/Time of Note DATE: 02/18/17 TIME: 12:50 OB - History Hx of Present Chief Complaint: scheduled c/s Estimated Due Date: Mar 10, 2017 : 5 Para: 3 Spontaneous : 1 Therapeutic : 0 Care: Good Care Ultrasounds: Normal mid trimester US Obstetrical Complications: Gestational Diabetes, Gestational Hypertension Medical Complications: None Past Family/Social History * Past Medical, Surgical, Family and Obstetric Histories reviewed from chart. GBS Status: Positive OB Admission Exam Vital Signs Vital Signs Vital Signs Date Time Temp Pulse Resp B/P Pulse Ox O2 Delivery O2 Flow Rate FiO2 02/18/17 08:43 98.7 90 20 131/87 Room Air Physical Exam HEENT: WNL Heart: Rhythm Normal Lungs: Clear, Equal Abdomen: WNL Extremities: Normal Reflexes: Normal Heart Rate: 130's Accelerations: Accelerations Present Decelerations: No Decelerations Varibility: Moderate Last 72 hourBlood Glucose Bedside Glucose - 72 Hours Test 02/18/17 09:43 02/18/17 12:46 Bedside Glucose 79mg/dL (70-220) 78mg/dL (70-220) Last 72 hours Lab Results CBC & BMP 02/18/17 09:05 Liver Function Test 02/18/17 09:05 Alanine Aminotransferase (ALT/SGPT) 30 Albumin 3.1 L Alkaline Phosphatase 108 Aspartate Amino Transf (AST/SGOT) 23 Direct Bilirubin 0.00 Total Protein 6.7 OB Assessment/Plan Reason for admission: section Other Assessment: Preeclampsia GDM Elective c/s Voluntary Sterilization Plan: Section Other plan: RYAN IRIZARRY MD Feb 18, 2017 12:54
[2017-02-18] MEDS ORDERED: OXYTOCIN 10 UNIT INJ ONE (13:13)
[2017-02-18] MEDS ORDERED: ONDANSETRON 4 MG INJ ONE (13:13)
[2017-02-18] MEDS ORDERED: PHENYLephrine (100 MCG/ML) 5ML SYG ONE (13:13)
[2017-02-18] MEDS ORDERED: morphine SULFATE/PF (10 MG/10 ML) INJ ONE (13:13)
[2017-02-18] MEDS ORDERED: FENTAnyl 50 MCG/ML VIAL ONE (14:14)
--- NOTE | 2017-02-18 14:51 | SIPON ---
Date/Time of Note Date/Time of Note DATE: 02/18/17 TIME: 14:48 Operative Report Preoperative Diagnosis 37 weeks and 1 day, Preeclampsia, GDM request for elective c/s, voluntary sterilization Postoperative Diagnosis Same Operation/Procedure Performed primary c/s and BTL Surgeon Ryan Gimenez MD esl instructional assistant Chaparrita Davis MD Anesthesia: spinal Estimated blood loss: other (500 ml) Transfusion Required none Specimen placenta, right and left Fallopian tubes Grafts/Implants none Complications none RYAN GIMENEZ MD Feb 18, 2017 14:51
--- NOTE | 2017-02-18 15:30 | OPR ---
DATE OF OPERATION: 02/18/2017 PREOPERATIVE DIAGNOSES: 1. at 37 weeks and 1 day. 2. Gestational diabetes. 3. Preeclampsia. 4. Request for elective primary section and voluntary sterilization. POSTOPERATIVE DIAGNOSES: 1. at 37 weeks and 1 day. 2. Gestational diabetes. 3. Preeclampsia. 4. Request for elective primary section and voluntary sterilization. OPERATION PERFORMED: Primary low transverse section and bilateral tubal ligation. SURGEON: Perico White MD JUDO TEACHER: Simin Davis MD ANESTHESIA: Spinal. ANESTHESIOLOGIST: Cosmo Razo MD PROCEDURE: The patient was taken to the operating room and placed on the operative table. After successful spinal anesthesia was given. The patient was placed in supine position. The area was prepared and draped in the usual sterile fashion. Spinal anesthesia was satisfactory. Using a scalpel, a Pfannenstiel incision was made about 2 fingerbreadths above the symphysis pubis. The incision was carried down to the fascia. The fascia was incised and extended bilaterally with Mckeon scissors. Two Christopher's were used to separate the fascia from the muscle. The muscle was dissected in the midline down to peritoneum. The peritoneum was bluntly entered. Using a scalpel, a small transverse incision was made on the lower segment of the uterus. Upon entering the uterine cavity, bandage scissors were inserted to extend the incision bilaterally curved up. Baby was delivered from cephalic presentation. After the suctioned cleared amniotic fluid, the baby was handed off to the team in attendance. Apgars were 8 and 9. The placenta was delivered without difficulty. The uterus was closed with number 1 Monocryl continuous locked fashion with good hemostasis. Both ovaries and tubes were inspected. All looked normal. The right fallopian tube was grasped with [place] clamp. Using 0 plain suture ligature, a 5 cm segment of the right fallopian tube was doubly ligated. Using Metzenbaum scissors a portion of the right fallopian tube above the ligated area was excised and sent to pathology. The same procedure was repeated on the left fallopian tube. After assuring hemostasis, the peritoneum was closed with 2-0 Vicryl continuous. The fascia was closed with number 1 Vicryl continuous in 2 segments. Subcutaneous tissue was reapproximated with 2-0 plain. The skin was closed nitin. ESTIMATED BLOOD LOSS: 500 mL. COUNTS: All counts were correct. Dictated By: Perico White MD /jer/palomo /Document#: [id number]
[2017-02-18] MEDS: KETOROLAC 30 MG INJ IV PRN (16:50)
[2017-02-18] MEDS ORDERED: morphine 2 MG INJ IV PRN (17:00)
[2017-02-18] MEDS ORDERED: NALOXONE (0.4 MG/ML) INJ IV PRN (17:00)
[2017-02-18] MEDS ORDERED: DIPHENHYDRAMINE 50 MG INJ IV PRN (17:00)
[2017-02-18] MEDS ORDERED: ONDANSETRON 4 MG INJ IV PRN (17:00)
[2017-02-18] MEDS ORDERED: LACTATED RINGER'S 1,000 ML IV SCH (19:11)
[2017-02-18] MEDS ORDERED: OXYCODONE/ACETAMINOPHEN (5/325) TAB PO PRN (19:30)
[2017-02-18] MEDS ORDERED: LANOLIN 7 GM TUBE TOP PRN (19:30)
[2017-02-18] MEDS: OXYTOCIN 30 UNITS/LR 500 ML IV SCH ×2 (19:46→23:13)
[2017-02-18 20:25] VITALS: BP 136/83; PULSE 88; RESP 18
[2017-02-18 20:55] VITALS: BP 132/81; PULSE 91; RESP 18
[2017-02-18 21:25] VITALS: BP 136/83; PULSE 89; RESP 18
[2017-02-18] MEDS: SENNA/DOCUSATE NA (8.6MG/50MG) TAB PO SCH (21:37)
[2017-02-18 21:40] VITALS: BP 135/84; PULSE 96; RESP 18
[2017-02-18] MEDS: IBUPROFEN 800 MG TAB PO SCH (22:00)
[2017-02-19 04:30] VITALS: BP 120/72; PULSE 86; RESP 0
[2017-02-19] MEDS: KETOROLAC 30 MG INJ IV PRN ×2 (04:58→12:43)
[2017-02-19] MEDS: IBUPROFEN 800 MG TAB PO SCH ×3 (06:00→22:24)
[2017-02-19 08:30] VITALS: BP 113/73; RESP 16
[2017-02-19 10:11] LABS: BASOPHILS % 0.2 % (0.0-2.0); EOSINOPHILS # 0.1 10^3/ul (0.0-0.5); EOSINOPHILS % 1.4 % (0.0-7.0); HEMATOCRIT 28.4 % (37.0-47.0); LYMPHOCYTES # 1.7 10^3/ul (0.8-2.9); LYMPHOCYTES % 20.5 % (15.0-51.0); MEAN CORPUSCULAR HEMOGLOBIN 32.5 pg (29.0-33.0); MEAN CORPUSCULAR HGB CONC 35.2 g/dl (32.0-37.0); MEAN CORPUSCULAR VOLUME 92.2 fl (82.0-101.0); MEAN PLATELET VOLUME 10.2 fl (7.4-10.4); MONOCYTE # 0.4 10^3/ul (0.3-0.9); MONOCYTES % 4.7 % (0.0-11.0); NEUTROPHILS % 72.7 % (39.0-77.0); PLATELET COUNT 153 10^3/UL (140-415); RED BLOOD COUNT 3.08 10^6/ul (4.20-5.40); RED CELL DISTRIBUTION WIDTH 14.3 % (11.5-14.5); WHITE BLOOD COUNT 8.3 10^3/ul (4.8-10.8)
[2017-02-19 12:30] VITALS: BP 130/75; PULSE 101; RESP 16
[2017-02-19] MEDS: SENNA/DOCUSATE NA (8.6MG/50MG) TAB PO SCH ×2 (12:43→21:09)
--- NOTE | 2017-02-19 19:28 | QN ---
Documentation Comment No complainy Afebrile VSS Abdomen soft ND POD #1 Stable Ambulate Advance diet. RYAN GIMENEZ MD Feb 19, 2017 19:28
[2017-02-19] MEDS: OXYCODONE/ACETAMINOPHEN (5/325) TAB PO PRN (19:34)
[2017-02-19 20:00] VITALS: BP 117/78; PULSE 103; RESP 16
[2017-02-20 04:45] VITALS: BP 119/80; PULSE 92; RESP 16
[2017-02-20] MEDS: IBUPROFEN 800 MG TAB PO SCH ×3 (05:57→21:21)
[2017-02-20 08:00] VITALS: BP 117/72; PULSE 92; RESP 18
[2017-02-20] MEDS: SENNA/DOCUSATE NA (8.6MG/50MG) TAB PO SCH ×2 (09:02→21:21)
--- NOTE | 2017-02-20 15:05 | QN ---
Documentation Comment No complaiunt Afebrile VSS abdomen soft Stable Continue present care. RYAN GIMENEZ MD Feb 20, 2017 15:05
[2017-02-20] MEDS: OXYCODONE/ACETAMINOPHEN (5/325) TAB PO PRN ×2 (15:26→23:07)
[2017-02-20 15:30] VITALS: BP 127/71; PULSE 87; RESP 19
[2017-02-20] MEDS ORDERED: BISACODYL 10 MG SUPP PR ONE (15:30)
[2017-02-20 19:45] VITALS: BP 132/82; PULSE 91; RESP 18
[2017-02-21 04:00] VITALS: BP 123/70; PULSE 91; RESP 17
[2017-02-21] MEDS: IBUPROFEN 800 MG TAB PO SCH ×2 (05:31→14:10)
[2017-02-21 07:35] VITALS: BP 138/85; PULSE 86; RESP 18
[2017-02-21] MEDS ORDERED: DIPHTH/TET/ACEL PERTUSS (ADULT) 0.5 ML VIAL IM* ONE (09:00)
--- NOTE | 2017-02-21 09:11 | DS ---
Date/Time of Note Date/Time of Note DATE: 02/21/17 TIME: 09:10 Obstetrical Discharge Record Final Diagnosis Final Diagnosis: Term delivered Section Section: Primary Primary Indication Elective Complications Gestational Diabetes, Preg induced Hypertension Condition on Discharge Physical Assessment Voiding: Yes Bowel Movement: Yes Breast: Soft, non-tender, Filling Fundus: Firm Abdomen and Incision: Incision intact Calf Tenderness: No Patient Condition: Stable RYAN GIMENEZ MD Feb 21, 2017 09:11
[2017-02-21] MEDS: SENNA/DOCUSATE NA (8.6MG/50MG) TAB PO SCH (09:56)
[2017-02-21] MEDS: OXYCODONE/ACETAMINOPHEN (5/325) TAB PO PRN (10:31)
[2017-02-21 16:00] VITALS: BP 132/80; PULSE 90; RESP 19
== END 2017-02-21 17:20 | disposition home or self-care (01) | DRG 765 ==
LOC: L-D 08:16 → PP1 20:23
PROVIDERS: ADMIT Obstetrics & Gynecology; ATTEND Obstetrics & Gynecology
PROC: 0UL70ZZ Occlusion of Bilateral Fallopian Tubes, Open Approach (ICD-10-PCS; 2017-02-18)
PROC: 3E0P3VZ Introduction of Hormone into Female Reproductive, Percutaneous Approach (ICD-10-PCS; 2017-02-18)
PROC: 10D00Z1 Extraction of Products of Conception, Low, Open Approach (ICD-10-PCS; principal; 2017-02-18 12:30)
DX: O24.429 Gestational diabetes mellitus in childbirth, unspecified control (principal); O14.93 Unspecified pre-eclampsia, third trimester; O99.214 Obesity complicating childbirth; E66.9 Obesity, unspecified; Z68.34 Body mass index [BMI] 34.0-34.9, adult; Z30.2 Encounter for sterilization; Z3A.37 37 weeks gestation of pregnancy; Z37.0 Single live birth
CPT/HCPCS: 80053; 81001; 82947; 82962; 84560; 85025; 85610; 85730; 86592; 86850; 86900; 86901; 88302; 90715; 94760; 99464; J0690; J1885; J2274; J2370; J2405; J2590; J3010; J7120